=== PATIENT | male | born 1990 | race Caucasian/White ===

== ENCOUNTER 2020-07-25 11:42 | Inpatient (IN) | payer OTHER ==
--- NOTE | 2020-07-25 11:56 | BHS.RME ---
Substance Use & Tx History - Substance Use History Xanax Substance amount: 2 mg - 4-5 tabs Frequency of use: Daily Substance route: Oral Date of Last Use: 07/24/20 (started age 18) Marijuana/Hashish Substance amount: 1/2 gram Frequency of use: Daily Substance route: Smoking Date of Last Use: 07/25/20 (started age 13) Nicotine Substance amount: 2 packs Frequency of use: Daily Substance route: Smoking Date of Last Use: 07/25/20 (started age 14) Ecstasy Substance amount: 5 tabs Frequency of use: Less than 3 times per week Substance route: Oral Date of Last Use: 07/24/20 (started age 28) Physical/Psych/Mental Status - Behavior General Behavior: Increased activity (restlessness, agitation) Eye Contact: Normal - Cooperativeness Cooperativeness: Cooperative - Thinking Thought Processes: Tight, Logical, Goal Directed - Physical Health Problems Is patient presently having any pain?: No Does patient presently have any injuries (include location): No Does patient currently have a fever: No Is patient : No CIWA Nausea/Vomitin-No Nausea/No Vomiting Muscle Tremors: 1-None Visible, but [place] Anxiety: 5 Agitation: 4-Moderately Restless Paroxysmal Sweats: 4-Forehead w/Sweat Beads Orientation: 0-Oriented Tacttile Disturbances: 0-None Auditory Disturbances: 0-None Visual Disturbances: 0-None Headache: 6-Very Severe CIWA-Ar Total Score: 20
--- NOTE | 2020-07-25 12:35 | HP ---
CIWA Score Nausea/Vomitin-No Nausea/No Vomiting Muscle Tremors: 1-None Visible, but [place] Anxiety: 5 Agitation: 4-Moderately Restless Paroxysmal Sweats: 4-Forehead w/Sweat Beads Orientation: 0-Oriented Tacttile Disturbances: 0-None Auditory Disturbances: 0-None Visual Disturbances: 0-None Headache: 6-Very Severe CIWA-Ar Total Score: 20 - Admission Criteria [facility] Guidelines: Admission for Medically Managed Detox: Requires at least one of the followin. CIWA greater than 12 2. Seizures within the past 24 hours 3. Delirium tremens within the past 24 hours 4. Hallucinations within the past 24 hours 5. Acute intervention needed for co occurring medical disorder 6. Acute intervention needed for co occurring psychiatric disorder 7. Severe withdrawal that cannot be handled at a lower level of care (continued vomiting, continued diarrhea, abnormal vital signs) requiring intravenous medication and/or fluids 8. Admitting History and Physical - Smoking History Smoking history: Current every day smoker Have you smoked in the past 12 months: Yes Aproximately how many cigarettes per day: 7 - Alcohol/Substance Use Hx Alcohol Use: No Admission ROS S - HPI Chief Complaint: "I want to clean myself up and I want to find out why I'm always anxious." Allergies/Adverse Reactions: Allergies Allergy/AdvReac Type Severity Reaction Status Date / Time No Known Allergies Allergy Verified 03/10/12 01:38 History of Present Illness: 29 year old male with history of benzodiazepine dependence,cannabis use disorder, nicotine dependence and ecstasy use disorder. - Substance Use History Xanax Substance amount: 2 mg - 4-5 tabs Frequency of use: Daily Substance route: Oral Date of Last Use: 07/24/20 (started age 18) Patient states he's had blackouts from over use of benzo, and tremors when he does not use benzo. Marijuana/Hashish Substance amount: 1/2 gram Frequency of use: Daily Substance route: Smoking Date of Last Use: 07/25/20 (started age 13) Nicotine Substance amount: 2 packs Frequency of use: Daily Substance route: Smoking Date of Last Use: 07/25/20 (started age 14) Ecstasy Substance amount: 5 tabs Frequency of use: Less than 3 times per week Substance route: Oral Date of Last Use: 07/24/20 (started age 28) PMH: Obesity Psurg: None Psych: Anxiety Disorder ( Non-compliant with psychiatric follow up or medications. States he hasn't been able to follow up with psychiatrist due to his inability to make appointments. He is homeless and unemployed now. He was a manager personnel selection. He has no legal problems pending. CIWA=20 Patient is being admitted for sedative detox. Exam Limitations: No Limitations - Ebola screening Have you traveled outside of the country in the last 21 days: No Have you had contact with anyone from an Ebola affected area: No Have you been sick,other than usual withdrawal symptoms: No Do you have a fever: No - Review of Systems Constitutional: Chills, Diaphoresis EENT: reports: No Symptoms Reported Respiratory: reports: No Symptoms reported Cardiac: reports: No Symptoms Reported GI: reports: No Symptoms Reported : reports: No Symptoms Reported Musculoskeletal: reports: No Symptoms Reported Integumentary: reports: No Symptoms Reported Neuro: reports: Tremors Endocrine: reports: No Symptoms Reported Hematology: reports: No Symptoms Reported Psychiatric: reports: Judgement Intact, Mood/Affect Appropiate, Orientated x3, Agitated, Anxious Other Systems: Reviewed and Negative Patient History - Patient Medical History Hx Anemia: No Hx Asthma: No Hx Chronic Obstructive Pulmonary Disease (COPD): No Hx Cancer: No Hx Cardiac Disorders: No Hx Congestive Heart Failure: No Hx Hypertension: Yes Hx Hypercholesterolemia: Yes Hx Pacemaker: No HX Cerebrovascular Accident: No Hx Seizures: Yes Hx Dementia: No Hx Diabetes: No Hx Gastrointestinal Disorders: No Hx Liver Disease: No Hx Genitourinary Disorders: No Hx Sexually Transmitted Disorders: No Hx Renal Disease (ESRD): No Hx Thyroid Disease: No Hx Human Immunodeficiency Virus (HIV): No Hx Hepatitis C: No Hx Depression: Yes - Patient Surgical History Past Surgical History: No - PPD History Previous Implant?: Yes Documented Results: Negative w/proof Implanted On Prior [facility] Admission?: Yes Date: 03/12/12 PPD to be Administered?: Yes - Smoking Cessation Smoking history: Current every day smoker Have you smoked in the past 12 months: Yes Aproximately how many cigarettes per day: 20 Hx Chewing Tobacco Use: No Initiated information on smoking cessation: Yes 'Breaking Loose' booklet given: 07/25/20 - Substances abused Alprazolam (Xanax) Substance route: Oral Frequency: Daily Amount used: 2mg - 2-3 bags Age of first use: 18 Date of last use: 07/24/20 Marijuana/Hashish Substance route: Smoking Frequency: Daily Amount used: 1/8 gram Age of first use: 14 Date of last use: 07/24/20 Ectasy Substance route: Oral Frequency: 1-2 times per week Amount used: 1 tab Age of first use: 28 Date of last use: 07/25/20 Admission Physical Exam [facility] - Physical General Appearance: Yes: Moderate Distress, Obese, Tremorous, Irritable, Sweating, Anxious HEENTM: Yes: EOMI, Hearing grossly Normal, Normal ENT Inspection, Normocephalic, Normal Voice, KESHA, Pharynx Normal, Tm's normal Respiratory: Yes: Chest Non-Tender, Lungs Clear, Normal Breath Sounds, No Respiratory Distress, No Accessory Muscle Use Neck: Yes: No masses,lesions,Nodules, Supple, Trachea in good position Breast: Yes: Within Normal Limits Cardiology: Yes: Regular Rhythm, S1, S2, Tachycardia Abdominal: Yes: Normal Bowel Sounds, Non Tender, Soft, Protuberent Genitourinary: Yes: Within Normal Limits Back: Yes: Normal Inspection Musculoskeletal: Yes: full range of Motion, Gait Steady, Pelvis Stable Extremities: Yes: Normal Capillary Refill, Normal Inspection, Normal Range of Motion, Non-Tender Neurological: Yes: sound effects person II-XII NML intact, Fully Oriented, Alert, Motor Strength 5/5, Normal Mood/Affect, Normal Response Integumentary: Yes: Normal Color, Dry, Warm Lymphatic: Yes: Within Normal Limits - Diagnostic (1) Sedative dependence Current Visit: Yes Status: Acute (2) Cannabis abuse Current Visit: Yes Status: Acute (3) Nicotine dependence Current Visit: Yes Status: Acute (4) Obesity Current Visit: Yes Status: Acute (5) Anxiety disorder Current Visit: Yes Status: Acute Cleared for Admission [facility] - Detox or Rehab [facility] Level of Care: Medically Managed Detox Regimen/Protocol: Valium Claeared for Rehab Admission: No Screened but not Admitted - Documentation of Visit Screened but not Admitted: No Breathalyzer - Breathalyzer Breathalyzer: 0 Vital Signs - Vital Signs Vital signs refused: No Temperature: 97.7 F Pulse Rate: 90 Respiratory Rate: 142 Blood Pressure: 155/97 BP Location: Right Arm Blood Pressure position: Sitting - Height Height: 5 ft - Weight Weight: 208 lb Weight measurement method: Standing scale - BMI Body Mass Index (BMI): 40.6 - Bowel Function Bowel Movement: No Urine Drug Screen - Control Is test valid?: Yes - Results Drug screen NEGATIVE: No Urine drug screen results: THC-Marijuana, GLADYS-Cocaine, MET-Methamphetamine, AMP- Amphetamines, BZO-Benzodiazepines Inpatient Rehab Admission - Rehab Decision to Admit Inpatient rehab admission?: No
[2020-07-25 12:47] VITALS: BMI 40.6
[2020-07-25] MEDS ORDERED: MAGNESIUM CITRATE 300 ML BOTTLE PO PRN (12:49)
[2020-07-25] MEDS ORDERED: BISMUTH SUBSALICYLATE 262 MG/15 ML BTL PO PRN (12:49)
[2020-07-25] MEDS ORDERED: MAG HYDROX/AL HYDROX/SIMETH 30 ML UNIT-DOSE CUP PO PRN (12:49)
[2020-07-25] MEDS ORDERED: MENTHOL/PHENOL 1 EACH UD MM PRN (12:49)
[2020-07-25] MEDS ORDERED: METHOCARBAMOL 500 MG TABLET PO PRN (12:49)
[2020-07-25] MEDS ORDERED: NICOTINE POLACRILEX 2 MG GUM BUC PRN (12:49)
[2020-07-25] MEDS ORDERED: ACETAMINOPHEN 325 MG TABLET (FP) PO PRN ×2 (12:49)
[2020-07-25] MEDS ORDERED: ONDANSETRON *ODT* 4 MG TABLET SL PRN (12:49)
[2020-07-25] MEDS ORDERED: IBUPROFEN 400 MG TABLET (FP) PO PRN (12:49)
[2020-07-25] MEDS ORDERED: MAGNESIUM HYDROX 2400MG/30ML ORAL SUSPENSION 30 ML CUP PO PRN (12:49)
[2020-07-25] MEDS ORDERED: NICOTINE 7 MG/24 HOURS TOPICAL PATCH TD SCH (13:00)
[2020-07-25] MEDS: hydrOXYzine PAMOATE 25 MG CAPSULE (FP) PO SCH ×3 (14:25→22:10)
[2020-07-25] MEDS: diazePAM 5 MG TABLET PO SCH ×3 (14:25→22:10)
[2020-07-25] MEDS: PRENATAL VITAMINS W/ FOLIC ACID TABLET (FP) PO SCH (14:26)
[2020-07-25 15:11] LABS: HEMATOCRIT 42.9 % (35.4-49); HEMOGLOBIN 14.5 GM/dL (11.7-16.9); MCH 28.8 pg (25.7-33.7); MCHC 33.9 g/dl (32.0-35.9); MEAN CELL VOLUME 85.1 fl (80-96); MEAN PLT VOLUME 7.9 fl (7.5-11.1); PLATELET COUNT 359 K/MM3 (134-434); RBC 5.04 M/mm3 (4.00-5.60); RDW 14.7 % (11.9-15.9); WHITE BLOOD COUNT 10.1 K/mm3 (4.0-10.0)
[2020-07-25 15:22] LABS: BILIRUBIN,TOTAL 0.4 mg/dL (0.2-1); BLOOD UREA NITROGEN 15.8 mg/dL (7-18); CALCIUM 9.2 mg/dL (8.5-10.1); CREATININE 0.8 mg/dL (0.55-1.3); POTASSIUM 4.3 mmol/L (3.5-5.1); TOT PROT 7.2 g/dl (6.4-8.2)
[2020-07-25] MEDS: NICOTINE 21 MG/24 HOURS TOPICAL PATCH TD SCH (15:53)
[2020-07-25] MEDS: MELATONIN 5 MG TABLETS PO SCH (22:10)
[2020-07-25] MEDS: THIAMINE HCL 100 MG TABLET (FP) PO SCH (22:10)
[2020-07-26] MEDS: diazePAM 5 MG TABLET PO SCH ×4 (05:13→22:05)
[2020-07-26] MEDS: hydrOXYzine PAMOATE 25 MG CAPSULE (FP) PO SCH ×5 (05:13→22:05)
--- NOTE | 2020-07-26 09:36 | PN ---
S CIWA - CIWA Score Nausea/Vomitin Muscle Tremors: 2 Anxiety: 2 Agitation: 2 Paroxysmal Sweats: 1-Minimal Palms Moist Orientation: 0-Oriented Tacttile Disturbances: 1-Very Mild Itch/Numbness Auditory Disturbances: 0-None Visual Disturbances: 0-None Headache: 2-Mild CIWA-Ar Total Score: 12 BHS Progress Note (SOAP) Subjective: alert,irritable,anxious,interrupted sleep,tremor,aching pain,nausea,ambulation on the unit Objective: 07/26/20 10:14 Vital Signs Temperature 97.1 F L 07/26/20 08:33 Pulse Rate 78 07/26/20 08:33 Respiratory Rate 18 07/26/20 08:33 Blood Pressure 136/87 07/26/20 08:33 O2 Sat by Pulse Oximetry (%) 98 07/26/20 08:33 Laboratory Last Values WBC 10.1 K/mm3 (4.0-10.0) H 07/25/20 12:40 RBC 5.04 M/mm3 (4.00-5.60) 07/25/20 12:40 Hgb 14.5 GM/dL (11.7-16.9) 07/25/20 12:40 Hct 42.9 % (35.4-49) 07/25/20 12:40 MCV 85.1 fl (80-96) 07/25/20 12:40 MCH 28.8 pg (25.7-33.7) 07/25/20 12:40 MCHC 33.9 g/dl (32.0-35.9) 07/25/20 12:40 RDW 14.7 % (11.9-15.9) 07/25/20 12:40 Plt Count 359 K/MM3 (134-434) 07/25/20 12:40 MPV 7.9 fl (7.5-11.1) 07/25/20 12:40 Sodium 140 mmol/L (136-145) 07/25/20 12:40 Potassium 4.3 mmol/L (3.5-5.1) 07/25/20 12:40 Chloride 109 mmol/L (98-107) H 07/25/20 12:40 Carbon Dioxide 27 mmol/L (21-32) 07/25/20 12:40 Anion Gap 4 MMOL/L (8-16) L 07/25/20 12:40 BUN 15.8 mg/dL (7-18) 07/25/20 12:40 Creatinine 0.8 mg/dL (0.55-1.3) 07/25/20 12:40 Est GFR (CKD-EPI)AfAm 139.91 07/25/20 12:40 Est GFR (CKD-EPI)NonAf 120.72 07/25/20 12:40 Random Glucose 78 mg/dL (74-106) 07/25/20 12:40 Calcium 9.2 mg/dL (8.5-10.1) 07/25/20 12:40 Total Bilirubin 0.4 mg/dL (0.2-1) 07/25/20 12:40 AST 14 U/L (15-37) L 07/25/20 12:40 ALT 32 U/L (13-61) 07/25/20 12:40 Alkaline Phosphatase 94 U/L (45-117) 07/25/20 12:40 Total Protein 7.2 g/dl (6.4-8.2) 07/25/20 12:40 Albumin 4.0 g/dl (3.4-5.0) 07/25/20 12:40 Syphilis Serology Non-reactive (NONREACTIVE) 07/25/20 12:40 COVID-19 (BENI) Not detected (Not Detected) 07/25/20 14:25 Assessment: 07/26/20 10:15 withdrawal symptom Plan: continue detox valium regimen,encourage oral fluid,repeat cbc in am,initial wbc 10.100
--- NOTE | 2020-07-26 09:43 | CONSULT ---
[facility] Psychiatric Consult - Data Date of interview: 07/26/20 Admission source: [facility] Identifying data: Patient is a 29 year old single male, without children, unemployed, domiciled, and is supported with unemployment benefits. This is one of multiple admissions for patient. Patient admitted to for K2 and benzodiazepine dependence. Substance Abuse History: Substance Use History. Xanax. Substance amount: 2 mg - 4-5 tabs. Frequency of use: Daily. Substance route: Oral. Date of Last Use: 07/24/20 (started age 18). Patient states he's had blackouts from over use of benzo, and tremors when he does not use benzo. Marijuana/Hashish. Substance amount: 1/2 gram. Frequency of use: Daily. Substance route: Smoking. Date of Last Use: 07/25/20 (started age 13). Nicotine. Substance amount: 2 packs. Frequency of use: Daily. Substance route: Smoking. Date of Last Use: 07/25/20 (started age 14). Ecstasy. Substance amount: 5 tabs. Frequency of use: Less than 3 times per week. Substance route: Oral. Date of Last Use: 07/24/20 (started age 28) Medical History: hypertension, seizures Psychiatric History: Patient's first psychiatric contact was as a child due to behavioral disturbances. He was diagnosed with mood disorder and prescribed abilify. Treatment was discontinued at 13 years of age and he did not see a psychiatrist again until last week (age 29). States that he resumed outpatient psychiatric care at [facility], was diagnosed with anxiety disorder, and is prescribed vistaril 25 TID + Gabapentin TID (unsure of dose) + Trazodone 50mg HS. Mr. Wilkinson denies history of psychiatric hospitalizations and suicide attempt. At present patient reports feeling anxiety and difficulty sleeping. Physical/Sexual Abuse/Trauma History: denies. Mental Status Exam - Mental Status Exam Alert and Oriented to: Time, Place, Person Cognitive Function: Good Patient Appearance: Well Groomed Mood: Anxious, Hopeful Affect: Mood Congruent Patient Behavior: Cooperative Speech Pattern: Appropriate Voice Loudness: Normal Thought Process: Intact, Goal Oriented Thought Disorder: Not Present Hallucinations: Denies Suicidal Ideation: Denies Homicidal Ideation: Denies Insight/Judgement: Poor Sleep: Poorly Muscle strength/Tone: Normal Gait/Station: Normal Psychiatric Findings - Problem List (Brent 1, 2,3) (1) Anxiety disorder Current Visit: Yes Status: Acute (2) Cannabis abuse Current Visit: Yes Status: Acute (3) Nicotine dependence Current Visit: Yes Status: Acute (4) Sedative dependence Current Visit: Yes Status: Acute - Initial Treatment Plan Initial Treatment Plan: Psychoeducation provided. Detoxification in progress. Will order Gabapentin 300mg TID + Trazodone 100mg HS (patient stated trazodone 50mg was not effective). Benefits and side effects discussed. Verbal consent given.
[2020-07-26] MEDS: PRENATAL VITAMINS W/ FOLIC ACID TABLET (FP) PO SCH (10:01)
[2020-07-26] MEDS: NICOTINE 21 MG/24 HOURS TOPICAL PATCH TD SCH (10:01)
[2020-07-26] MEDS: GABAPENTIN 300 MG CAPSULE PO SCH ×2 (14:17→22:05)
[2020-07-26] MEDS: traZODone HCL 100 MG TABLET (FP) PO SCH (22:05)
[2020-07-26] MEDS: MELATONIN 5 MG TABLETS PO SCH (22:05)
[2020-07-26] MEDS: THIAMINE HCL 100 MG TABLET (FP) PO SCH (22:05)
[2020-07-27] MEDS: hydrOXYzine PAMOATE 25 MG CAPSULE (FP) PO SCH ×5 (05:11→22:03)
[2020-07-27] MEDS: GABAPENTIN 300 MG CAPSULE PO SCH ×3 (05:11→22:03)
[2020-07-27] MEDS: diazePAM 5 MG TABLET PO SCH ×3 (05:12→22:03)
[2020-07-27] MEDS: diazePAM 5 MG TABLET PO PRN ×2 (08:49→17:23)
[2020-07-27 09:39] LABS: HEMATOCRIT 44.9 % (35.4-49); HEMOGLOBIN 15.3 GM/dL (11.7-16.9); MCH 29.3 pg (25.7-33.7); MCHC 34.1 g/dl (32.0-35.9); MEAN CELL VOLUME 85.9 fl (80-96); MEAN PLT VOLUME 8.3 fl (7.5-11.1); PLATELET COUNT 330 K/MM3 (134-434); RBC 5.22 M/mm3 (4.00-5.60); RDW 14.5 % (11.9-15.9); WHITE BLOOD COUNT 8.5 K/mm3 (4.0-10.0)
[2020-07-27] MEDS: PRENATAL VITAMINS W/ FOLIC ACID TABLET (FP) PO SCH (10:22)
[2020-07-27] MEDS: NICOTINE 21 MG/24 HOURS TOPICAL PATCH TD SCH (10:22)
--- NOTE | 2020-07-27 11:01 | PN ---
S CIWA - CIWA Score Nausea/Vomitin-No Nausea/No Vomiting Muscle Tremors: None Anxiety: 2 Agitation: 1-Slight > Activity Paroxysmal Sweats: 3 Orientation: 0-Oriented Tacttile Disturbances: 0-None Auditory Disturbances: 0-None Visual Disturbances: 0-None Headache: 2-Mild CIWA-Ar Total Score: 8 BHS Progress Note (SOAP) Subjective: c/o sweats, headache, anxiety. Objective: 07/27/20 11:09 Vital Signs 07/27/20 07/27/20 06:10 08:37 Temperature 96.9 F L 97.3 F L Pulse Rate 67 79 Respiratory 18 18 Rate Blood Pressure 116/66 144/97 O2 Sat by Pulse 100 Oximetry (%) Laboratory Last Values WBC 8.5 K/mm3 (4.0-10.0) 07/27/20 07:30 RBC 5.22 M/mm3 (4.00-5.60) 07/27/20 07:30 Hgb 15.3 GM/dL (11.7-16.9) 07/27/20 07:30 Hct 44.9 % (35.4-49) 07/27/20 07:30 MCV 85.9 fl (80-96) 07/27/20 07:30 MCH 29.3 pg (25.7-33.7) 07/27/20 07:30 MCHC 34.1 g/dl (32.0-35.9) 07/27/20 07:30 RDW 14.5 % (11.9-15.9) 07/27/20 07:30 Plt Count 330 K/MM3 (134-434) 07/27/20 07:30 MPV 8.3 fl (7.5-11.1) 07/27/20 07:30 Sodium 140 mmol/L (136-145) 07/25/20 12:40 Potassium 4.3 mmol/L (3.5-5.1) 07/25/20 12:40 Chloride 109 mmol/L (98-107) H 07/25/20 12:40 Carbon Dioxide 27 mmol/L (21-32) 07/25/20 12:40 Anion Gap 4 MMOL/L (8-16) L 07/25/20 12:40 BUN 15.8 mg/dL (7-18) 07/25/20 12:40 Creatinine 0.8 mg/dL (0.55-1.3) 07/25/20 12:40 Est GFR (CKD-EPI)AfAm 139.91 07/25/20 12:40 Est GFR (CKD-EPI)NonAf 120.72 07/25/20 12:40 Random Glucose 78 mg/dL (74-106) 07/25/20 12:40 Calcium 9.2 mg/dL (8.5-10.1) 07/25/20 12:40 Total Bilirubin 0.4 mg/dL (0.2-1) 07/25/20 12:40 AST 14 U/L (15-37) L 07/25/20 12:40 ALT 32 U/L (13-61) 07/25/20 12:40 Alkaline Phosphatase 94 U/L (45-117) 07/25/20 12:40 Total Protein 7.2 g/dl (6.4-8.2) 07/25/20 12:40 Albumin 4.0 g/dl (3.4-5.0) 07/25/20 12:40 Syphilis Serology Non-reactive (NONREACTIVE) 07/25/20 12:40 COVID-19 (BENI) Not detected (Not Detected) 07/25/20 14:25 Labs noted. Assessment: 07/27/20 11:10 AOX3, in no acute respiratory distress. Full ROM, ambulating in the unit. Withdrawal symptoms. Plan: continue detox.
[2020-07-27] MEDS: THIAMINE HCL 100 MG TABLET (FP) PO SCH (22:03)
[2020-07-27] MEDS: traZODone HCL 100 MG TABLET (FP) PO SCH (22:03)
[2020-07-27] MEDS: MELATONIN 5 MG TABLETS PO SCH (22:03)
[2020-07-28] MEDS: hydrOXYzine PAMOATE 25 MG CAPSULE (FP) PO SCH ×5 (05:52→22:02)
[2020-07-28] MEDS: diazePAM 5 MG TABLET PO SCH ×2 (05:52→17:39)
[2020-07-28] MEDS: GABAPENTIN 300 MG CAPSULE PO SCH ×3 (05:52→22:02)
--- NOTE | 2020-07-28 09:56 | PN ---
S CIWA - CIWA Score Nausea/Vomitin-No Nausea/No Vomiting Muscle Tremors: 2 Anxiety: 2 Agitation: 1-Slight > Activity Paroxysmal Sweats: No Perspiration Orientation: 0-Oriented Tacttile Disturbances: 0-None Auditory Disturbances: 0-None Visual Disturbances: 1-Very Mild Sensitivity Headache: 0-None Present CIWA-Ar Total Score: 6 BHS Progress Note (SOAP) Subjective: 29 years old male was admitted on 07/25/20 for benzo withdrawal sx management treating with valium detox regiment feels better today discussing aftercare with staff mr baez has options to [facility] mr baez does not decide at this time Objective: 07/28/20 09:58 Vital Signs - 24 hr 07/27/20 07/27/20 07/27/20 12:47 16:43 20:36 Temperature 98.2 F 97.7 F 97.3 F L Pulse Rate 82 71 84 Respiratory 18 18 18 Rate Blood Pressure 137/81 149/97 146/94 O2 Sat by Pulse 99 99 Oximetry (%) 07/28/20 07/28/20 06:19 08:35 Temperature 97.6 F 97.8 F Pulse Rate 81 84 Respiratory 16 18 Rate Blood Pressure 133/72 131/84 O2 Sat by Pulse 100 Oximetry (%) Laboratory Tests 07/25/20 07/25/20 07/25/20 12:40 12:40 12:40 WBC 10.1 H RBC 5.04 Hgb 14.5 Hct 42.9 MCV 85.1 MCH 28.8 MCHC 33.9 RDW 14.7 Plt Count 359 MPV 7.9 Sodium 140 Potassium 4.3 Chloride 109 H Carbon Dioxide 27 Anion Gap 4 L BUN 15.8 Creatinine 0.8 Est GFR (CKD-EPI)AfAm 139.91 Est GFR (CKD-EPI)NonAf 120.72 Random Glucose 78 Calcium 9.2 Total Bilirubin 0.4 AST 14 L ALT 32 Alkaline Phosphatase 94 Total Protein 7.2 Albumin 4.0 Syphilis Serology Non-reactive COVID-19 (BENI) 07/25/20 07/27/20 14:25 07:30 WBC 8.5 RBC 5.22 Hgb 15.3 Hct 44.9 MCV 85.9 MCH 29.3 MCHC 34.1 RDW 14.5 Plt Count 330 MPV 8.3 Sodium Potassium Chloride Carbon Dioxide Anion Gap BUN Creatinine Est GFR (CKD-EPI)AfAm Est GFR (CKD-EPI)NonAf Random Glucose Calcium Total Bilirubin AST ALT Alkaline Phosphatase Total Protein Albumin Syphilis Serology COVID-19 (BENI) Not detected lab noted Assessment: 07/28/20 09:58 benzo withdrawal Plan: valium regiment
[2020-07-28] MEDS: NICOTINE 21 MG/24 HOURS TOPICAL PATCH TD SCH (10:01)
[2020-07-28] MEDS: PRENATAL VITAMINS W/ FOLIC ACID TABLET (FP) PO SCH (10:01)
[2020-07-28] MEDS: diazePAM 5 MG TABLET PO PRN (10:02)
[2020-07-28] MEDS: MELATONIN 5 MG TABLETS PO SCH (22:02)
[2020-07-28] MEDS: THIAMINE HCL 100 MG TABLET (FP) PO SCH (22:02)
[2020-07-28] MEDS: traZODone HCL 100 MG TABLET (FP) PO SCH (22:02)
[2020-07-29] MEDS: GABAPENTIN 300 MG CAPSULE PO SCH (05:12)
[2020-07-29] MEDS: hydrOXYzine PAMOATE 25 MG CAPSULE (FP) PO SCH ×2 (05:12→10:04)
[2020-07-29] MEDS ORDERED: diazePAM 5 MG TABLET PO ONE (06:00)
--- NOTE | 2020-07-29 09:04 | PN ---
[facility] CIWA - CIWA Score Nausea/Vomitin-No Nausea/No Vomiting Muscle Tremors: None Anxiety: 1-Mildly Anxious Agitation: 0-Normal Activity Paroxysmal Sweats: No Perspiration Orientation: 0-Oriented Tacttile Disturbances: 0-None Auditory Disturbances: 0-None Visual Disturbances: 0-None Headache: 0-None Present CIWA-Ar Total Score: 1 S Progress Note (SOAP) Subjective: alert,no complaint Objective: 07/29/20 12:43 Vital Signs Temperature 97.1 F L 07/29/20 09:05 Pulse Rate 89 07/29/20 09:05 Respiratory Rate 18 07/29/20 09:05 Blood Pressure 156/92 07/29/20 09:05 O2 Sat by Pulse Oximetry (%) 97 07/29/20 06:33 Assessment: 07/29/20 12:43 detox completed,no withdrawal symptom Plan: detox completed,discharge today,follow up with after care program as arrangement
--- NOTE | 2020-07-29 09:04 | DS ---
[facility] Detox Discharge Summary Admission Date: 07/25/20 Discharge Date: 07/29/20 - History Present History: Cannabis Dependence, Sedative Dependence Additional Comments: alert,oriented x 3 ambulation on the unit lung clear on auscultation bilaterally abdomen soft,no distension,no pain ,no tenderness no edema of the leg stable for discharge today total time spending 35 minutes follow up with after care program as arrangement [facility] Pertinent Past History: nicotine dependence obesity anxiety disorder - Physical Exam Results Vital Signs: Vital Signs Temperature 96.9 F L 07/29/20 06:33 Pulse Rate 72 07/29/20 06:33 Respiratory Rate 18 07/29/20 06:33 Blood Pressure 120/75 07/29/20 06:33 O2 Sat by Pulse Oximetry (%) 97 07/29/20 06:33 Pertinent Admission Physical Exam Findings: withdrawal sings and symptom Laboratory Last Values WBC 8.5 K/mm3 (4.0-10.0) 07/27/20 07:30 RBC 5.22 M/mm3 (4.00-5.60) 07/27/20 07:30 Hgb 15.3 GM/dL (11.7-16.9) 07/27/20 07:30 Hct 44.9 % (35.4-49) 07/27/20 07:30 MCV 85.9 fl (80-96) 07/27/20 07:30 MCH 29.3 pg (25.7-33.7) 07/27/20 07:30 MCHC 34.1 g/dl (32.0-35.9) 07/27/20 07:30 RDW 14.5 % (11.9-15.9) 07/27/20 07:30 Plt Count 330 K/MM3 (134-434) 07/27/20 07:30 MPV 8.3 fl (7.5-11.1) 07/27/20 07:30 Sodium 140 mmol/L (136-145) 07/25/20 12:40 Potassium 4.3 mmol/L (3.5-5.1) 07/25/20 12:40 Chloride 109 mmol/L (98-107) H 07/25/20 12:40 Carbon Dioxide 27 mmol/L (21-32) 07/25/20 12:40 Anion Gap 4 MMOL/L (8-16) L 07/25/20 12:40 BUN 15.8 mg/dL (7-18) 07/25/20 12:40 Creatinine 0.8 mg/dL (0.55-1.3) 07/25/20 12:40 Est GFR (CKD-EPI)AfAm 139.91 07/25/20 12:40 Est GFR (CKD-EPI)NonAf 120.72 07/25/20 12:40 Random Glucose 78 mg/dL (74-106) 07/25/20 12:40 Calcium 9.2 mg/dL (8.5-10.1) 07/25/20 12:40 Total Bilirubin 0.4 mg/dL (0.2-1) 07/25/20 12:40 AST 14 U/L (15-37) L 07/25/20 12:40 ALT 32 U/L (13-61) 07/25/20 12:40 Alkaline Phosphatase 94 U/L (45-117) 07/25/20 12:40 Total Protein 7.2 g/dl (6.4-8.2) 07/25/20 12:40 Albumin 4.0 g/dl (3.4-5.0) 07/25/20 12:40 Syphilis Serology Non-reactive (NONREACTIVE) 07/25/20 12:40 COVID-19 (BENI) Not detected (Not Detected) 07/25/20 14:25 Vital Signs Temperature 97.1 F L 07/29/20 09:05 Pulse Rate 89 07/29/20 09:05 Respiratory Rate 18 07/29/20 09:05 Blood Pressure 156/92 07/29/20 09:05 O2 Sat by Pulse Oximetry (%) 97 07/29/20 06:33 - Treatment Hospital Course: Detox Protocol Followed, Detoxed Safely, Responded well, Discharged Condition Good, Rehab Referral Accepted Patient has Accepted a Rehab Referral to: [facility] - Medication Discharge Medications: Ambulatory Orders Gabapentin [Neurontin] 300 mg PO TID 07/29/20 traZODone HCL [Trazodone HCl] 100 mg PO HS 07/29/20 - Diagnosis (1) Sedative dependence Status: Acute (2) Cannabis abuse Status: Acute (3) Nicotine dependence Status: Acute (4) Obesity Status: Acute (5) Anxiety disorder Status: Acute - AMA Did Patient Leave Against Medical Advice: No
[2020-07-29 09:41] VITALS: BP 156/92; PULSE 89; TEMP 97.1
[2020-07-29] MEDS: PRENATAL VITAMINS W/ FOLIC ACID TABLET (FP) PO SCH (10:04)
[2020-07-29] MEDS: NICOTINE 21 MG/24 HOURS TOPICAL PATCH TD SCH (10:05)
== END 2020-07-29 13:00 | disposition other institution (70) | DRG 776 ==
LOC: YASAS 11:42 → Y3N 13:29
PROVIDERS: ADMIT Allergy & Immunology; ATTEND Allergy & Immunology
PROC: HZ2ZZZZ Detoxification Services for Substance Abuse Treatment (ICD-10-PCS; principal; 2020-07-25)
DX: F13.230 Sedative, hypnotic or anxiolytic dependence with withdrawal, uncomplicated (principal); F12.20 Cannabis dependence, uncomplicated; F16.10 Hallucinogen abuse, uncomplicated; F17.210 Nicotine dependence, cigarettes, uncomplicated; F41.9 Anxiety disorder, unspecified; G40.909 Epilepsy, unspecified, not intractable, without status epilepticus; I10 Essential (primary) hypertension; E66.01 Morbid (severe) obesity due to excess calories; Z68.41 Body mass index [BMI] 40.0-44.9, adult; Z56.0 Unemployment, unspecified; Z59.0 Homelessness
CPT/HCPCS: 36415; 80053; 85027; 86780; U0003

== ENCOUNTER 2021-08-11 17:46 | Inpatient (IN) | payer OTHER ==
[2021-08-11] MEDS ORDERED: MAG HYDROX/AL HYDROX/SIMETH 30 ML UNIT-DOSE CUP PO PRN (19:49)
[2021-08-11] MEDS ORDERED: MENTHOL/PHENOL 1 EACH UD MM PRN (19:49)
[2021-08-11] MEDS ORDERED: ACETAMINOPHEN 325 MG TABLET (FP) PO PRN ×2 (19:49)
[2021-08-11] MEDS ORDERED: BISMUTH SUBSALICYLATE 524 MG/30 ML PO PRN (19:49)
[2021-08-11] MEDS ORDERED: methaDONE HCL 10 MG TABLET (FOR DETOX USE ONLY) PO ONE (19:49)
[2021-08-11] MEDS ORDERED: MAGNESIUM HYDROX 2400MG/30ML ORAL SUSPENSION 30 ML CUP PO PRN (19:49)
[2021-08-11] MEDS ORDERED: NICOTINE 10 MG CARTRIDGE (INHALER) IH PRN (19:49)
[2021-08-11] MEDS ORDERED: IBUPROFEN 400 MG TABLET (FP) PO PRN (19:49)
[2021-08-11] MEDS ORDERED: MAGNESIUM CITRATE 300 ML BOTTLE PO PRN (19:49)
[2021-08-11 20:11] VITALS: BMI 56.6
[2021-08-11] MEDS ORDERED: MELATONIN 5 MG TABLETS PO SCH (22:00)
[2021-08-11] MEDS: METHOCARBAMOL 500 MG TABLET PO PRN (22:30)
[2021-08-11] MEDS: cloNIDine HCL 0.1 MG TABLET PO PRN (22:30)
[2021-08-11] MEDS: THIAMINE HCL 100 MG TABLET (FP) PO SCH (22:30)
[2021-08-11] MEDS: hydrOXYzine PAMOATE 25 MG CAPSULE (FP) PO SCH (22:31)
[2021-08-12] MEDS: hydrOXYzine PAMOATE 25 MG CAPSULE (FP) PO SCH ×5 (05:44→22:03)
[2021-08-12] MEDS: METHOCARBAMOL 500 MG TABLET PO PRN ×2 (07:27→22:03)
[2021-08-12] MEDS ORDERED: methaDONE HCL 10 MG TABLET (FOR DETOX USE ONLY) ONE (09:23)
[2021-08-12] MEDS ORDERED: NICOTINE 14 MG/24 HOURS TOPICAL PATCH TD SCH (10:00)
[2021-08-12] MEDS: NICOTINE 21 MG/24 HOURS TOPICAL PATCH TD SCH (10:15)
[2021-08-12] MEDS: PRENATAL VITAMINS W/ FOLIC ACID TABLET (FP) PO SCH (10:16)
[2021-08-12] MEDS: diazePAM 5 MG TABLET PO PRN ×3 (10:51→22:03)
[2021-08-12] MEDS ORDERED: FLU VACC QS2021-22(6MOS UP)/PF 60 MCG/0.5 ML SYRINGE IM ONE (12:00)
[2021-08-12 12:51] LABS: HEMOGLOBIN 14.9 GM/dL (11.7-16.9); MCH 30.4 pg (25.7-33.7); MCHC 34.7 g/dl (32.0-35.9); MEAN CELL VOLUME 87.6 fl (80-96); MEAN PLT VOLUME 8.1 fl (7.5-11.1); PLATELET COUNT 320 10^3/uL (134-434); RBC 4.91 M/mm3 (4.00-5.60); RDW 14.1 % (11.9-15.9); WHITE BLOOD COUNT 10.2 K/mm3 (4.0-10.0)
[2021-08-12 13:06] LABS: ALBUMIN 3.7 g/dl (3.4-5.0); BLOOD UREA NITROGEN 20.2 mg/dL (7-18); CALCIUM 9.4 mg/dL (8.5-10.1)
[2021-08-12 13:10] LABS: BILIRUBIN,TOTAL 0.2 mg/dL (0.2-1); CREATININE 0.9 mg/dL (0.55-1.3); TOT PROT 6.9 g/dl (6.4-8.2)
[2021-08-12] MEDS: DIVALPROEX SODIUM 500 MG TABLET E.C. PO SCH ×2 (13:30→22:02)
[2021-08-12] MEDS: cloNIDine HCL 0.1 MG TABLET PO PRN (17:32)
[2021-08-12] MEDS ORDERED: SUVOREXANT 10 MG TABLET PO PRN (22:00)
[2021-08-12] MEDS: THIAMINE HCL 100 MG TABLET (FP) PO SCH (22:02)
[2021-08-12] MEDS: PRAZOSIN HCL 1 MG CAPSULE PO SCH (22:02)
[2021-08-12 22:29] LABS: HIV INTERPRETATION NEGATIVE (NEGATIVE)
[2021-08-13] MEDS: METHOCARBAMOL 500 MG TABLET PO PRN (04:29)
[2021-08-13] MEDS: diazePAM 5 MG TABLET PO PRN ×4 (04:46→22:17)
[2021-08-13] MEDS: hydrOXYzine PAMOATE 25 MG CAPSULE (FP) PO SCH ×5 (05:03→22:17)
[2021-08-13] MEDS ORDERED: methaDONE HCL 10 MG TABLET (FOR DETOX USE ONLY) PO ONE (10:00)
[2021-08-13] MEDS: DIVALPROEX SODIUM 500 MG TABLET E.C. PO SCH (10:07)
[2021-08-13] MEDS: PRENATAL VITAMINS W/ FOLIC ACID TABLET (FP) PO SCH (10:07)
[2021-08-13] MEDS: NICOTINE 21 MG/24 HOURS TOPICAL PATCH TD SCH (10:08)
[2021-08-13] MEDS ORDERED: METHOCARBAMOL 500 MG TABLET PO PRN (14:07)
[2021-08-13] MEDS: METHOCARBAMOL 750 MG TAB PO PRN ×2 (15:10→22:17)
[2021-08-13] MEDS: cloNIDine HCL 0.1 MG TABLET PO PRN ×2 (17:01→22:20)
[2021-08-13] MEDS: DIVALPROEX SODIUM 250 MG TABLET E.C. PO SCH (22:16)
[2021-08-13] MEDS: PRAZOSIN HCL 1 MG CAPSULE PO SCH (22:16)
[2021-08-13] MEDS: THIAMINE HCL 100 MG TABLET (FP) PO SCH (22:17)
[2021-08-13] MEDS: SUVOREXANT 15 MG TABLET PO PRN (22:19)
[2021-08-14] MEDS: diazePAM 5 MG TABLET PO PRN ×4 (02:38→22:07)
[2021-08-14] MEDS: hydrOXYzine PAMOATE 25 MG CAPSULE (FP) PO SCH ×5 (05:35→22:06)
[2021-08-14] MEDS: METHOCARBAMOL 750 MG TAB PO PRN ×3 (07:48→22:07)
[2021-08-14] MEDS ORDERED: methaDONE HCL 10 MG TABLET (FOR DETOX USE ONLY) ONE (09:18)
[2021-08-14] MEDS: DIVALPROEX SODIUM 250 MG TABLET E.C. PO SCH ×2 (10:13→22:09)
[2021-08-14] MEDS: PRENATAL VITAMINS W/ FOLIC ACID TABLET (FP) PO SCH (10:14)
[2021-08-14] MEDS: ONDANSETRON *ODT* 4 MG TABLET SL PRN (10:17)
[2021-08-14] MEDS: NICOTINE 21 MG/24 HOURS TOPICAL PATCH TD SCH (10:20)
[2021-08-14 11:12] LABS: BLOOD UREA NITROGEN 12.1 mg/dL (7-18)
[2021-08-14] MEDS: THIAMINE HCL 100 MG TABLET (FP) PO SCH (22:06)
[2021-08-14] MEDS: PRAZOSIN HCL 1 MG CAPSULE PO SCH (22:06)
[2021-08-14] MEDS: SUVOREXANT 15 MG TABLET PO PRN (22:08)
[2021-08-15] MEDS: diazePAM 5 MG TABLET PO PRN ×5 (02:55→21:25)
[2021-08-15] MEDS: hydrOXYzine PAMOATE 25 MG CAPSULE (FP) PO SCH ×5 (05:11→21:25)
[2021-08-15] MEDS ORDERED: methaDONE HCL 10 MG TABLET (FOR DETOX USE ONLY) PO ONE (10:00)
[2021-08-15] MEDS: PRENATAL VITAMINS W/ FOLIC ACID TABLET (FP) PO SCH (10:10)
[2021-08-15] MEDS: DIVALPROEX SODIUM 250 MG TABLET E.C. PO SCH ×2 (10:10→21:25)
[2021-08-15] MEDS: NICOTINE 21 MG/24 HOURS TOPICAL PATCH TD SCH (10:11)
[2021-08-15] MEDS: METHOCARBAMOL 750 MG TAB PO PRN ×2 (10:14→17:04)
[2021-08-15] MEDS ORDERED: FLU VACC QS2021-22(6MOS UP)/PF 60 MCG/0.5 ML SYRINGE IM ONE (12:00)
[2021-08-15] MEDS: SUVOREXANT 15 MG TABLET PO PRN (21:23)
[2021-08-15] MEDS: PRAZOSIN HCL 1 MG CAPSULE PO SCH (21:24)
[2021-08-15] MEDS: THIAMINE HCL 100 MG TABLET (FP) PO SCH (21:25)
[2021-08-16] MEDS: diazePAM 5 MG TABLET PO PRN (02:37)
[2021-08-16] MEDS: METHOCARBAMOL 750 MG TAB PO PRN (02:37)
[2021-08-16] MEDS: hydrOXYzine PAMOATE 25 MG CAPSULE (FP) PO SCH ×2 (06:21→10:32)
[2021-08-16 06:28] VITALS: BP 127/55; PULSE 94; TEMP 97.3
[2021-08-16] MEDS: ONDANSETRON *ODT* 4 MG TABLET SL PRN (06:53)
[2021-08-16] MEDS: DIVALPROEX SODIUM 250 MG TABLET E.C. PO SCH (10:31)
[2021-08-16] MEDS: PRENATAL VITAMINS W/ FOLIC ACID TABLET (FP) PO SCH (10:32)
[2021-08-16] MEDS: NICOTINE 21 MG/24 HOURS TOPICAL PATCH TD SCH (10:58)
== END 2021-08-16 11:01 | disposition home or self-care (01) | DRG 773 ==
LOC: YASAS 17:46 → Y3N 20:35
PROVIDERS: ADMIT Allergy & Immunology; ATTEND Allergy & Immunology
PROC: HZ2ZZZZ Detoxification Services for Substance Abuse Treatment (ICD-10-PCS; principal; 2021-08-11)
DX: F11.23 Opioid dependence with withdrawal (principal); F14.20 Cocaine dependence, uncomplicated; F13.20 Sedative, hypnotic or anxiolytic dependence, uncomplicated; F12.20 Cannabis dependence, uncomplicated; F17.210 Nicotine dependence, cigarettes, uncomplicated; F19.282 Other psychoactive substance dependence with psychoactive substance-induced sleep disorder; F19.24 Other psychoactive substance dependence with psychoactive substance-induced mood disorder; F31.9 Bipolar disorder, unspecified; F41.9 Anxiety disorder, unspecified; F43.10 Post-traumatic stress disorder, unspecified
CPT/HCPCS: 36415; 80053; 82947; 83036; 84520; 85027; 86780; 87389; 90686; C9803; G0008; J0735; Q0162; U0003; U0005